=== PATIENT | female | born 2000 | race Caucasian/White ===

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

== ENCOUNTER → 2019-01-12 | Outpatient (CLI) | payer BC ==
--- NOTE | 2019-01-12 08:10 | WOMENS IMAGING REPORT ---
EXAM DESCRIPTION: U/S THYROID/ST TIS HEAD NECK COMPLETED DATE/TIME: 01/12/2019 7:24 am REASON FOR STUDY: R59.9 ENLARGED LYMPH NODES, UNSPECIFIED R59.9 ENLARGED LYMPH NODES, UNSPECIFIED R 42 DIZZINESS AND GIDDINESS COMPARISON: None. TECHNIQUE: Dynamic and static mancuso-scale images acquired of the palpable abnormality in the right po sterior auricular region. Selected additional color/power Doppler images recorded. All images stored to PACS. LIMITATIONS: None. FINDINGS: Patient indicates a palpable nodule in the right posterior auricular soft tissues. Ultras ound of this area demonstrates a well-circumscribed hypoechoic solid nodule with central hilar fat li yeni a benign lymph node. This measures 1.3 x 1.1 x 0.4 cm in size. Comparison imaging of the left posterior auricular region is unremarkable. Fine IMPRESSION: Palpable abnormality in the right posterior auricular region correlates with a benign-ap pearing lymph node. TECHNICAL DOCUMENTATION: JOB ID: [id number] [email or web address]- All Rights Reserved Reading location - IP/workstation name: [email or web address]
--- NOTE | 2019-01-12 23:51 | XCELERA REPORT ---
[address] [address] Transthoracic Echocardiogram Report Name: YAIMA DOBBINS Age: 18 yrs Gender: Female : 2000 Patient Status: Outpatient Patient Location: [place] Study Date: 01/12/2019 08:16 AM Height: 63 in Weight: 145 lb BSA: 1.7 m2 Procedure: A two-dimensional transthoracic echocardiogram with color flow and Doppler was performed. Study Quality: Good. Reason For Study: DIZZINESS History: DIZZINESS. Ordering Physician: SATNAM HURTADO Performed By: Jeanne Sanchez Interpretation Summary There is no obvious cardiac source of embolus noted on this transthoracic echocardiogram. Follow-up with a KATARZYNA is suggested if cardiac source is still suspected. The left ventricle is normal in size. There is normal left ventricular wall thickness. LV EF is 70% Left ventricular systolic function is low normal. Doppler measurements suggest normal left ventricular diastolic function The left ventricular wall motion is normal. There is no thrombus. No S,VSD,or PFO seen. The right ventricle is normal in size and function. The right atrium is normal. The left atrial size is normal. There is no evidence of mitral valve prolapse. There is no vegetation seen on the mitral valve. There is no mitral valve stenosis. There is a trace amount of mitral regurgitation There is no aortic valvular vegetation. There is no aortic valve stenosis There is no LVOT obstruction. No aortic regurgitation is present. There is no tricuspid stenosis. There is a mild amount of tricuspid regurgitation There is mild pulmonary hypertension by echo RVSP is 33 to 38 mm of Hg , with RA mean of 5 to 10. There is no pulmonic valvular stenosis. There is a mild amount of pulmonic regurgitation The aortic root is normal size. The inferior vena cava appeared normal and decreased > 50% with respiration (RAP 5-10 mmHg) There is no pericardial effusion. There is no obvious cardiac source of embolus noted on this transthoracic echocardiogram. Follow-up with a KATARZYNA is suggested if cardiac source is still suspected MMode/2D Measurements & Calculations RVDd: 2.6 cm LVIDd: 4.4 cm FS: 42.8 % Ao root diam: 2.1 cm IVSd: 0.76 cm LVIDs: 2.5 cm EDV(Teich): Ao root area: LVPWd: 0.75 cm 85.5 ml 3.5 cm2 ESV(Teich): LA dimension: 3.1 cm 22.1 ml EF(Teich): 74.1 % LVLd ap4: 7.7 cm SV(MOD-sp4): EDV(MOD-sp4): 45.0 ml 68.0 ml LVLs ap4: 6.5 cm ESV(MOD-sp4): 23.0 ml EF(MOD-sp4): 66.2 % Doppler Measurements & Calculations MV E max nicole: MV P1/2t max nicole: Ao V2 max: LV V1 max P.4 cm/sec 125.9 cm/sec 140.4 cm/sec 5.0 mmHg MV A max nicole: MV P1/2t: 53.6 msec Ao max P.9 mmHgLV V1 max: 35.0 cm/sec MVA(P1/2t): 4.1 cm2 111.6 cm/sec MV E/A: 3.6 MV dec slope: 687.2 cm/sec2 MV dec time: 0.19 sec PA V2 max: TR max nicole: MV P1/2t-pr_phl: 105.1 cm/sec 264.7 cm/sec 53.6 msec PA max P.4 mmHgTR max P.0 mmHg Left Ventricle The left ventricle is normal in size. There is normal left ventricular wall thickness. LV EF is 70%. Left ventricular systolic function is low normal. Doppler measurements suggest normal left ventricular diastolic function. The left ventricular wall motion is normal. There is no thrombus. No S,VSD,or PFO seen. Right Ventricle The right ventricle is normal in size and function. Atria The right atrium is normal. The left atrial size is normal. Mitral Valve There is no evidence of mitral valve prolapse. There is no vegetation seen on the mitral valve. There is no mitral valve stenosis. There is a trace amount of mitral regurgitation. Aortic Valve There is no aortic valvular vegetation. There is no aortic valve stenosis. There is no LVOT obstruction. No aortic regurgitation is present. Tricuspid Valve There is no tricuspid stenosis. There is a mild amount of tricuspid regurgitation. There is mild pulmonary hypertension by echo. RVSP is 33 to 38 mm of Hg , with RA mean of 5 to 10. Pulmonic Valve There is no pulmonic valvular stenosis. There is a mild amount of pulmonic regurgitation. Great Vessels The aortic root is normal size. The inferior vena cava appeared normal and decreased > 50% with respiration (RAP 5-10 mmHg). Effusions There is no pericardial effusion. : SATNAM HURTADO Lakshmi
== END ==
LOC: WI 07:00
PROVIDERS: ATTEND Internal Medicine
DX: R42 Dizziness and giddiness (principal); R59.0 Localized enlarged lymph nodes; I27.20 Pulmonary hypertension, unspecified
CPT/HCPCS: 76536; 93306

== ENCOUNTER → 2019-01-26 | Outpatient (CLI) | payer BC ==
[2019-01-26 11:01] LABS: ABSOLUTE EOSINOPHILS # (AUTO) 0.1 10^3/uL (0.0-0.6); ABSOLUTE LYMPHOCYTES (AUTO) 1.8 10^3/uL (0.5-4.7); ABSOLUTE MONOCYTES (AUTO) 0.4 10^3/uL (0.1-1.4); ABSOLUTE NEUT (AUTO) 3.7 10^3/uL (1.7-8.2); BASOPHILS % (AUTO) 0.3 % (0-2); EOSINOPHILS % (AUTO) 2.4 % (0-6); HEMATOCRIT 43.5 % (36.0-47.0); HEMOGLOBIN 14.9 g/dL (12.0-15.5); LYMPHOCYTES % (AUTO) 30.1 % (13-45); MEAN CORPUSCULAR HEMOGLOBIN 29.5 pg (27.0-33.4); MEAN CORPUSCULAR HGB CONC 34.2 g/dL (32.0-36.0); MEAN CORPUSCULAR VOLUME 86 fl (80-97); MONOCYTES % (AUTO) 6.9 % (3-13); PLATELET COUNT 244 10^3/uL (150-450); RED BLOOD COUNT 5.04 10^6/uL (3.72-5.28); RED CELL DISTRIBUTION WIDTH 12.9 % (11.5-14.0); SEGMENTED NEUTROPHILS % (AUTO) 60.3 % (42-78); TOTAL CELLS COUNTED % (AUTO) 100 %; WHITE BLOOD COUNT 6.1 10^3/uL (4.0-10.5)
[2019-01-26 11:23] LABS: ALANINE AMINOTRANSFERASE 16 U/L (5-35); ALBUMIN 4.9 g/dL (3.7-5.6); ALKALINE PHOSPHATASE 73 U/L (50-135); ANION GAP 14 (5-19); ASPARTATE AMINO TRANSFERASE 25 U/L (5-30); BILIRUBIN,DIRECT 0.4 mg/dL (0.0-0.4); BILIRUBIN,TOTAL 0.7 mg/dL (0.2-1.3); BLOOD UREA NITROGEN 12 mg/dL (7-20); CALCIUM 10.4 mg/dL (8.4-10.2); CARBON DIOXIDE 20 mmol/L (22-30); CHLORIDE 106 mmol/L (98-107); CHOLESTEROL 232.98 mg/dL (0-200); GLUCOSE 95 mg/dL (75-110); POTASSIUM 4.9 mmol/L (3.6-5.0); TOTAL PROTEIN 8.3 g/dL (6.3-8.2); TRIGLYCERIDES 114 mg/dL (<150)
[2019-01-26 11:37] LABS: DIRECT LDL 106 mg/dL (<100)
[2019-01-26 12:16] LABS: FREE T3 3.35 pg/mL (2.77-5.27); FREE T4 (FREE THYROXINE) 1.31 ng/dL (0.78-2.19)
== END ==
LOC: OD 10:06
PROVIDERS: ATTEND Physician Assistant
DX: Z00.00 Encounter for general adult medical examination without abnormal findings (principal); R42 Dizziness and giddiness; R53.83 Other fatigue; J02.9 Acute pharyngitis, unspecified; R94.5 Abnormal results of liver function studies; R00.2 Palpitations; R59.9 Enlarged lymph nodes, unspecified
CPT/HCPCS: 36415; 80053; 80061; 82306; 84439; 84443; 84481; 85025

== ENCOUNTER → 2019-07-14 | Outpatient (CLI) | payer BC ==
--- NOTE | 2019-07-14 14:41 | RADIOLOGY REPORT (SQ) ---
EXAM DESCRIPTION: CT CHEST WITHOUT COMPLETED DATE/TIME: 07/14/2019 1:15 pm REASON FOR STUDY: (I27.20)PULMONARY HYPERTENSION, UNSPECIFIED I27.20 PULMONARY HYPERTENSION, UNSPEC IFIED COMPARISON: None. TECHNIQUE: CT scan performed of the chest without intravenous contrast. Images reviewed with lung, soft tissue and bone windows. Reconstructed coronal and sagittal MPR images reviewed. All images st ored on PACS. All CT scanners at this facility use dose modulation, iterative reconstruction, and/or weight based d osing when appropriate to reduce radiation dose to as low as reasonably achievable (ALARA). [facility]: Dose Right [facility]: CareDose [facility]: Dose Right [facility]: Teradose 4D [facility]: [employer] RADIATION DOSE: CT Rad equipment meets quality standard of care and radiation dose reduction techniq ues were employed. CTDIvol: 4.8 mGy. DLP: 196 mGy-cm. mGy. LIMITATIONS: No technical limitations. FINDINGS: LUNGS AND PLEURA: No masses, infiltrates, or pneumothorax. No pleural effusions or pleura l calcifications. HILAR AND MEDIASTINAL STRUCTURES: No identified masses or abnormal nodes. No obvious aneurysm. HEART AND VASCULAR STRUCTURES: No aneurysm. No pericardial effusion. UPPER ABDOMEN: No significant findings. Limited exam. THYROID AND OTHER SOFT TISSUES: No masses. No adenopathy. BONES: No significant finding. HARDWARE: None in the chest. OTHER: No other significant findings. IMPRESSION: NO SIGNIFICANT FINDING ON NON-CONTRASTED CHEST CT. TECHNICAL DOCUMENTATION: JOB ID: [id number] Quality ID # [id number]: Final reports with documentation of one or more dose reduction techniques (e.g., Au tomated exposure control, adjustment of the mA and/or kV according to patient size, use of iterative reconstruction technique) 2010 [employer]- All Rights Reserved Reading location - IP/workstation name: [email or web address]
== END ==
LOC: RAD 13:01
PROVIDERS: ATTEND Registered Nurse
DX: I27.20 Pulmonary hypertension, unspecified (principal)
CPT/HCPCS: 71250

== ENCOUNTER → 2020-01-26 | Outpatient (CLI) | payer BC ==
[2020-01-27 13:37] LABS: ANTICHROMATIN AB 0.3 AI (0.0-0.9); CENTROMERE B AB <0.2 AI (0.0-0.9); JO-1 ANTIBODY (ANACOMP) <0.2 AI (0.0-0.9); SJOGREN'S ANTI-SS-B AB <0.2 AI (0.0-0.9); SJOGREN'S SS-A ANTIBODY <0.2 AI (0.0-0.9)
[2020-01-27 15:02] LABS: DNA DOUBLE STRAND ANTIBODY ANA <1 IU/mL (0-9)
[2020-01-27 16:37] LABS: CYTOPLASMIC (C-ANCA) <1:20 titer (Neg:<1:20)
[2020-01-27 16:50] LABS: ATYPICAL PANCA <1:20 titer (Neg:<1:20)
== END ==
LOC: OD 11:01
PROVIDERS: ATTEND Internal Medicine Pulmonary Disease
DX: I27.20 Pulmonary hypertension, unspecified (principal)
CPT/HCPCS: 36415; 86021; 86225; 86235; 86431

== ENCOUNTER → 2020-03-07 | Outpatient (CLI) | payer BC | LOC: SP 13:29 | PROVIDERS: ATTEND Internal Medicine Pulmonary Disease | DX: I27.20 Pulmonary hypertension, unspecified (principal) ==